=== PATIENT | female | born 1975 | race Caucasian/White ===

== ENCOUNTER 2017-05-30 11:31 | Inpatient (IN) | payer OTHER ==
[~2017-05-30] VITALS: Ht 165.1 cm; Wt 77.1 kg
[~2017-05-30 11:31] MED LIST: ATARAX25 MG PO; CIPRO500 MG PO; CLARITIN10 MG PO; CLEOCIN HCL300 MG PO; FLAGYL500MG PO; HYOSCYAMINE0.125 M1 SL; INTESTINEX1 CA1 PO; LOTRISONE CREAM45 GM TOP; MEDROL4 MG PO; NAPR500T14 PO; PROTONIX40 MG PO; SEPTRA DS TABLE1 TAB PO; SURFAK240 MG NGT; SYNTHROID100 MCG; SYNTHROID100 MCG PO; Synthroid 100MCG TABLET PO; ZYRTEC10 MG PO
[2017-06-05] MEDS ORDERED: CIPRO500 MG PO (13:43)
[2017-06-05] MEDS ORDERED: FAMOTIDINE20 MG PO (13:43)
[2017-06-05] MEDS ORDERED: SYNTHROID100 MCG PO (13:43)
[2017-06-05] MEDS ORDERED: MONTELUKAST SOD10 MG PO (13:43)
[2017-06-05] MEDS ORDERED: FLAGYL500MG PO (13:43)
[2017-06-05] MEDS ORDERED: Intestinex CAP PO (13:43)
[2017-06-05] MEDS ORDERED: MEDROLPACK PO (13:43)
[2017-06-05] MEDS ORDERED: BENZONATATE100 MG PO (13:43)
[2017-06-05] MEDS ORDERED: IPRATROPIU0.2 MG/1 M IH (13:43)
[2017-06-05] MEDS ORDERED: Pulmicort 0.5 MG/2 M IH (13:43)
[2017-06-05] MEDS ORDERED: HYDROCODONE-CH115 ML PO (13:43)
== END 2017-06-05 15:56 | disposition home or self-care (01) | DRG 392 ==
LOC: ER 11:31 → SURH 18:45 → MEDJ 18:45 → SURH 22:15
PROC: 3E0F7GC Introduction of Other Therapeutic Substance into Respiratory Tract, Via Natural or Artificial Opening (ICD-10-PCS; principal; 2017-05-30)
PROC: BW21Y0Z Computerized Tomography (CT Scan) of Abdomen and Pelvis using Other Contrast, Unenhanced and Enhanced (ICD-10-PCS; 2017-05-30)
DX: K57.32 Diverticulitis of large intestine without perforation or abscess without bleeding (principal); J45.22 Mild intermittent asthma with status asthmaticus; E03.8 Other specified hypothyroidism

== ENCOUNTER → 2017-06-12 | Outpatient (CLI) | payer OTHER ==
[~2017-06-12] MED LIST changes: +BENZONATATE100 MG PO; +FAMOTIDINE20 MG PO; +HYDROCODONE-CH115 ML PO; +IPRATROPIU0.2 MG/1 M IH; +Intestinex CAP PO; +MEDROLPACK PO; +MONTELUKAST SOD10 MG PO; +Pulmicort 0.5 MG/2 M IH
== END | disposition home or self-care (01) ==
LOC: PPHC 11:28
DX: Z00.8 Encounter for other general examination (principal)

== ENCOUNTER → 2017-10-22 12:15 | Outpatient (CLI) | payer OTHER | END | disposition home or self-care (01) | LOC: LAB 12:15 | DX: Z00.00 Encounter for general adult medical examination without abnormal findings (principal); I10 Essential (primary) hypertension; E03.8 Other specified hypothyroidism; E78.00 Pure hypercholesterolemia, unspecified; N91.0 Primary amenorrhea; E55.9 Vitamin D deficiency, unspecified; R82.79 Other abnormal findings on microbiological examination of urine; R79.9 Abnormal finding of blood chemistry, unspecified; R79.89 Other specified abnormal findings of blood chemistry ==

== ENCOUNTER 2017-10-22 12:21 | Outpatient (CLI) | payer OTHER | END 2017-10-22 12:31 | disposition home or self-care (01) | LOC: MAMO-SONO 12:21 | DX: N64.59 Other signs and symptoms in breast (principal); N64.89 Other specified disorders of breast; Z12.31 Encounter for screening mammogram for malignant neoplasm of breast; N94.0 Mittelschmerz; N94.89 Other specified conditions associated with female genital organs and menstrual cycle; R10.2 Pelvic and perineal pain ==

== ENCOUNTER → 2018-02-09 12:25 | Outpatient (CLI) | payer OTHER | END | disposition home or self-care (01) | LOC: LAB 12:25 | DX: E03.8 Other specified hypothyroidism (principal); Z13.1 Encounter for screening for diabetes mellitus; R03.0 Elevated blood-pressure reading, without diagnosis of hypertension; Z12.11 Encounter for screening for malignant neoplasm of colon ==

== ENCOUNTER 2018-02-19 15:15 | Outpatient (CLI) | payer OTHER | END 2018-02-19 16:06 | disposition home or self-care (01) | LOC: NUCLEAR 15:15 | DX: I87.2 Venous insufficiency (chronic) (peripheral) (principal) ==

== ENCOUNTER 2018-05-25 14:38 | Outpatient (CLI) | payer OTHER | END 2018-05-25 15:19 | disposition home or self-care (01) | LOC: LAB 14:38 | DX: Z11.59 Encounter for screening for other viral diseases (principal); Z11.3 Encounter for screening for infections with a predominantly sexual mode of transmission ==

== ENCOUNTER 2018-06-24 09:14 | Outpatient (CLI) | payer OTHER | END 2018-06-24 09:20 | disposition home or self-care (01) | LOC: LAB 09:14 | DX: M32.8 Other forms of systemic lupus erythematosus (principal); M06.89 Other specified rheumatoid arthritis, multiple sites; E03.8 Other specified hypothyroidism ==

== ENCOUNTER 2018-07-07 10:58 | Outpatient (CLI) | payer OTHER | END 2018-07-07 11:05 | disposition home or self-care (01) | LOC: RAD 10:58 | DX: M25.572 Pain in left ankle and joints of left foot (principal) ==

== ENCOUNTER → 2019-02-09 | Emergency (ER) | payer OTHER ==
[~2019-02-09] VITALS: Ht 165.1 cm; Wt 73.5 kg
[~2019-02-09] MED LIST changes: +ZANTAC150 MG PO
== END | disposition home or self-care (01) ==
LOC: ER 06:59
DX: L50.8 Other urticaria (principal)

== ENCOUNTER 2019-06-09 11:06 | Outpatient (CLI) | payer OTHER | END 2019-06-09 11:10 | disposition home or self-care (01) | LOC: SONOGRAMA 11:06 | DX: R10.2 Pelvic and perineal pain (principal) ==

== ENCOUNTER 2019-09-01 09:56 | Inpatient (IN) | payer OTHER ==
[~2019-09-01] VITALS: Ht 165.1 cm; Wt 74.4 kg
[2019-09-07] MEDS ORDERED: INTESTINEX680 M1 PO (11:59)
[2019-09-07] MEDS ORDERED: FLAGYL500MG PO (11:59)
[2019-09-07] MEDS ORDERED: SYNTHROID100 MCG PO (11:59)
[2019-09-07] MEDS ORDERED: CARAFATE1 GM PO (11:59)
[2019-09-07] MEDS ORDERED: PROTONIX40 MG PO (11:59)
[2019-09-07] MEDS ORDERED: CIPRO500 MG PO (11:59)
== END 2019-09-07 15:39 | disposition home or self-care (01) | DRG 392 ==
LOC: ER 09:56 → SURH 17:04
PROVIDERS: ADMIT Internal Medicine Geriatric Medicine; ATTEND Internal Medicine Geriatric Medicine
PROC: BW21Y0Z Computerized Tomography (CT Scan) of Abdomen and Pelvis using Other Contrast, Unenhanced and Enhanced (ICD-10-PCS; principal; 2019-09-01)
PROC: 02HV33Z Insertion of Infusion Device into Superior Vena Cava, Percutaneous Approach (ICD-10-PCS; 2019-09-02)
PROC: 3E0436Z Introduction of Nutritional Substance into Central Vein, Percutaneous Approach (ICD-10-PCS; 2019-09-02)
DX: K57.32 Diverticulitis of large intestine without perforation or abscess without bleeding (principal); R10.32 Left lower quadrant pain; E03.8 Other specified hypothyroidism; Z03.818 Encounter for observation for suspected exposure to other biological agents ruled out

== ENCOUNTER 2019-09-20 14:31 | Outpatient (CLI) | payer OTHER ==
[~2019-09-20 14:31] MED LIST changes: +CARAFATE1 GM PO; +INTESTINEX680 M1 PO
== END 2019-09-20 14:41 | disposition home or self-care (01) ==
LOC: MRI 14:31
DX: M76.52 Patellar tendinitis, left knee (principal)
CPT/HCPCS: 73721

== ENCOUNTER 2020-02-27 10:21 | Emergency (ER) | payer OTHER ==
[~2020-02-27] VITALS: Ht 165.1 cm; Wt 74.8 kg
[2020-02-27] MEDS ORDERED: CIPRO500 MG PO (18:41)
[2020-02-27] MEDS ORDERED: INTESTINEX680 M1 PO (18:41)
[2020-02-27] MEDS ORDERED: PEPCID AC20 MG PO (18:41)
[2020-02-27] MEDS ORDERED: FLAGYL500MG PO (18:41)
== END 2020-02-27 19:33 | disposition home or self-care (01) ==
LOC: ER 10:21
DX: K52.89 Other specified noninfective gastroenteritis and colitis (principal); K57.30 Diverticulosis of large intestine without perforation or abscess without bleeding; R10.32 Left lower quadrant pain; Z03.818 Encounter for observation for suspected exposure to other biological agents ruled out

== ENCOUNTER 2020-03-22 08:29 | Outpatient (CLI) | payer OTHER ==
[~2020-03-22 08:29] MED LIST changes: +PEPCID AC20 MG PO
== END 2020-03-22 18:00 | disposition home or self-care (01) ==
LOC: PPH VACUNA 08:29
DX: Z23 Encounter for immunization (principal)

== ENCOUNTER 2021-04-08 08:00 | Outpatient (CLI) | payer OTHER | END 2021-04-08 08:30 | disposition home or self-care (01) | LOC: PPH VACUNA 08:00 | PROVIDERS: ATTEND Emergency Medicine Pediatric Emergency Medicine | DX: Z23 Encounter for immunization (principal) ==

== ENCOUNTER 2021-04-09 10:51 | Outpatient (CLI) | payer OTHER | END 2021-04-09 10:54 | disposition home or self-care (01) | LOC: SONOGRAMA 10:51 | PROVIDERS: ATTEND Orthopaedic Surgery | DX: M77.12 Lateral epicondylitis, left elbow (principal); M25.522 Pain in left elbow ==

== ENCOUNTER 2021-08-22 13:33 | Outpatient (CLI) | payer OTHER | END 2021-08-22 13:45 | disposition home or self-care (01) | LOC: MAMO-SONO 13:33 | PROVIDERS: ATTEND Obstetrics & Gynecology | DX: N60.09 Solitary cyst of unspecified breast (principal) ==

== ENCOUNTER 2021-11-25 01:34 | Emergency (ER) | payer OTHER | END 2021-11-25 11:45 | disposition home or self-care (01) | LOC: ER 01:34 | DX: R10.12 Left upper quadrant pain (principal); K57.92 Diverticulitis of intestine, part unspecified, without perforation or abscess without bleeding; E03.9 Hypothyroidism, unspecified; Z20.822 Contact with and (suspected) exposure to COVID-19 ==

== ENCOUNTER 2022-04-15 06:43 | Emergency (ER) | payer OTHER ==
[~2022-04-15] VITALS: Ht 165.1 cm; Wt 72.6 kg
[~2022-04-15 06:43] MED LIST changes: +CYCLOBENZAPRINE10 MG PO; +KETO10TA2 PO; +ORPHENADRINE C100 MG PO; +PERCOCET 5-3251 EACH PO
== END 2022-04-15 12:17 | disposition home or self-care (01) ==
LOC: ER 06:43
DX: J40 Bronchitis, not specified as acute or chronic (principal); B34.9 Viral infection, unspecified; Z20.822 Contact with and (suspected) exposure to COVID-19

== ENCOUNTER 2022-04-17 12:22 | Emergency (ER) | payer OTHER ==
[~2022-04-17] VITALS: Ht 165.1 cm; Wt 72.6 kg
[2022-04-17] MEDS ORDERED: TUSICOF LIQUID120 ML PO (15:37)
[2022-04-17] MEDS ORDERED: BUDESONIDE0.5 MG/2 M BC (15:37)
[2022-04-17] MEDS ORDERED: ZITHROMAX TRI-500 MG PO (15:37)
[2022-04-17] MEDS ORDERED: MEDROLPACK PO (15:37)
== END 2022-04-17 17:46 | disposition home or self-care (01) ==
LOC: ER 12:22
DX: J45.902 Unspecified asthma with status asthmaticus (principal); J45.22 Mild intermittent asthma with status asthmaticus; J45.32 Mild persistent asthma with status asthmaticus; J45.52 Severe persistent asthma with status asthmaticus; Z20.822 Contact with and (suspected) exposure to COVID-19

== ENCOUNTER 2022-05-15 | Outpatient (CLI) | payer OTHER ==
[~2022-05-15] MED LIST changes: +BUDESONIDE0.5 MG/2 M BC; +TUSICOF LIQUID120 ML PO; +ZITHROMAX TRI-500 MG PO
== END 2022-05-15 00:15 | disposition home or self-care (01) ==
LOC: PPH VACUNA
PROVIDERS: ATTEND Emergency Medicine Pediatric Emergency Medicine
DX: Z23 Encounter for immunization (principal)

== ENCOUNTER 2022-05-22 07:37 | Outpatient (CLI) | payer OTHER | END 2022-05-22 07:56 | disposition home or self-care (01) | LOC: LAB 07:37 | PROVIDERS: ATTEND General Practice | DX: Z00.00 Encounter for general adult medical examination without abnormal findings (principal); E78.5 Hyperlipidemia, unspecified; E55.9 Vitamin D deficiency, unspecified; N39.0 Urinary tract infection, site not specified; R10.9 Unspecified abdominal pain; E03.9 Hypothyroidism, unspecified ==

== ENCOUNTER 2024-05-10 10:40 | Outpatient (CLI) | payer OTHER ==
[~2024-05-10 10:40] MED LIST changes: +AMOX1TAB5 PO; +LEVOTHYROXINE25 MCG PO; +OSEL75CA PO
== END 2024-05-10 10:48 | disposition home or self-care (01) ==
LOC: MAMO-SONO 10:40
PROVIDERS: ATTEND Obstetrics & Gynecology
DX: N64.9 Disorder of breast, unspecified (principal); N64.4 Mastodynia; Z12.31 Encounter for screening mammogram for malignant neoplasm of breast; N94.89 Other specified conditions associated with female genital organs and menstrual cycle

== ENCOUNTER 2024-08-28 20:43 | Inpatient (IN) | payer OTHER ==
[~2024-08-28] VITALS: Ht 165.1 cm; Wt 73.9 kg
[2024-08-28] MEDS ORDERED: METRONIDAZOLE/SODIUM CHLORIDE 500 MG/100 ML PIGGYBACK IV ONE (21:06)
[2024-08-28] MEDS ORDERED: 0.9 % SODIUM CHLORIDE 1,000 ML IV STA (21:06)
[2024-08-28] MEDS ORDERED: METRONIDAZOLE/SODIUM CHLORIDE 500 MG/100 ML PIGGYBACK IV SCH (21:07)
[2024-08-28] MEDS ORDERED: BARIUM SULFATE 450 ML ORAL.SUSP PO ONE (21:14)
[2024-08-28] MEDS ORDERED: CIPROFLOXACIN IN 5 % DEXTROSE 400 MG/200 ML PIGGYBAG IV ONE (21:15)
[2024-08-28] MEDS ORDERED: MORPHINE SULFATE 4 MG/ML VIAL IV ONE (21:15)
[2024-08-28 21:18] LABS: BASO % 0.3 % (0.1-1.2); EOS # 0.17 (0.04-0.54); EOS % 2.5 % (0.7-7.0); HEMATOCRIT 36.4 % (34.1-44.9); HEMOGLOBIN 12.6 g/dL (11.2-15.7); LYMPH # 2.14 (1.18-3.74); LYMPH % 31.8 % (19.3-53.1); MEAN CORPUSCULAR HEMOGLOBIN 29.9 pg (25.6-32.2); MONO # 1.12 (0.24-0.82); NEUT # 3.28 (1.56-6.13); NEUT % 48.7 % (34.0-71.1); PLATELET COUNT 196 K/uL (163-369); RED BLOOD COUNT 4.22 M/uL (3.93-5.22); RED CELL DISTRIBUTION WIDTH 12.2 % (11.6-14.4)
[2024-08-28 21:19] LABS: MONO % 16.6 % (4.7-12.5)
[2024-08-28 21:50] LABS: CREATININE SERUM 0.73 mg/dL (0.55-1.02); GFR 84.39; POTASSIUM 3.88 mEq/L (3.5-5.1)
[2024-08-28 22:21] LABS: PH,URINE 6.5 (5.0-8.0); URINE APPEARANCE Clear; URINE BILIRRUBIN Negative (NEGATIVE); URINE BLOOD Negative; URINE COLOR Yellow; URINE GLUCOSE Negative (NEGATIVE); URINE KETONE Negative (NEGATIVE); URINE LEUKOCYTE Small; URINE NITRATE Negative; URINE PROTEIN Negative (NEGATIVE); URINE UROBILINOGEN 0.2 E.U./dl
[2024-08-28 22:25] LABS: URINE BACTERIA 462.5 uL (0.0-1933); URINE EPITHELIAL CELLS 9.8 uL (0.0-38.8); URINE RBC 9.1 uL (0.0-20.8); URINE WBC 22.1 uL (0.0-23.2)
[2024-08-29] MEDS ORDERED: MORPHINE SULFATE 4 MG/ML VIAL IV STA (05:00)
[2024-08-29] MEDS ORDERED: CIPROFLOXACIN IN 5 % DEXTROSE 400 MG/200 ML PIGGYBAG IV ONE (08:11)
[2024-08-29] MEDS ORDERED: METRONIDAZOLE/SODIUM CHLORIDE 500 MG/100 ML PIGGYBACK IV ONE (08:11)
[2024-08-29] MEDS ORDERED: 0.9 % SODIUM CHLORIDE 1,000 ML IV ONE (08:15)
[2024-08-29] MEDS ORDERED: CIPROFLOXACIN IN 5 % DEXTROSE 200 ML IV SCH (09:00)
[2024-08-29] MEDS ORDERED: METRONIDAZOLE/SODIUM CHLORIDE 100 ML IV SCH (09:00)
[2024-08-29] MEDS ORDERED: DEXTROSE 5 % AND 0.9 % NACL 1,000 ML IV SCH ×2 (10:45→11:00)
[2024-08-29] MEDS ORDERED: FAMOTIDINE/PF 20 MG/2 ML VIAL IV SCH (10:47)
[2024-08-29] MEDS ORDERED: ENOXAPARIN SODIUM 40 MG/0.4 ML SYRINGE SUBCUTANEO SCH (10:50)
[2024-08-29] MEDS ORDERED: ONDANSETRON HCL 2 MG/ML VIAL IV PRN (11:00)
[2024-08-29] MEDS ORDERED: ENOXAPARIN SODIUM 40 MG/0.4 ML SYRINGE SUBCUTANEO ONE (12:24)
[2024-08-29] MEDS ORDERED: FAMOTIDINE/PF 20 MG/2 ML VIAL ONE (12:24)
[2024-08-29 14:17] LABS: COVID-19 AG NEGATIVE (NEGATIVE)
[2024-08-29 16:36] VITALS: BP 106/66; O2SAT 99
[2024-08-30 00:49] VITALS: BP 88/50
[2024-08-30] MEDS ORDERED: LEVOTHYROXINE SODIUM 100 MCG TABLET PO SCH (06:00)
[2024-08-30 08:33] LABS: BASO % 0.6 % (0.1-1.2); EOS # 0.12 (0.04-0.54); EOS % 3.4 % (0.7-7.0); HEMATOCRIT 30.5 % (34.1-44.9); HEMOGLOBIN 10.6 g/dL (11.2-15.7); LYMPH # 1.34 (1.18-3.74); LYMPH % 38.1 % (19.3-53.1); MEAN CORPUSCULAR HEMOGLOBIN 30.9 pg (25.6-32.2); NEUT # 1.54 (1.56-6.13); NEUT % 43.7 % (34.0-71.1); PLATELET COUNT 154 K/uL (163-369); RED BLOOD COUNT 3.43 M/uL (3.93-5.22); RED CELL DISTRIBUTION WIDTH 12.3 % (11.6-14.4)
[2024-08-30 08:39] LABS: MONO % 14.2 % (4.7-12.5)
[2024-08-30 08:54] LABS: ERYTHROCYTE SEDIMENTATION RATE 10 mm/hr (0-20)
[2024-08-30 09:08] VITALS: BP 106/61; O2SAT 98
[2024-08-30 10:18] LABS: PHOSPHOROUS 4.7 mg/dL (2.5-4.9)
[2024-08-30 10:26] LABS: C-REACTIVE PROTEIN 0.65 MG/DL (0.00-0.29); HCG QUANTITATIVE < 1 mUI/mL (1-3)
[2024-08-30 18:20] VITALS: BP 101/61; O2SAT 98
[2024-08-31 01:54] VITALS: BP 109/65; O2SAT 95
[2024-08-31 08:35] VITALS: BP 95/55; O2SAT 97
[2024-08-31 17:41] VITALS: BP 108/79; O2SAT 97
[2024-09-01 02:02] VITALS: BP 101/61; O2SAT 95
[2024-09-01 06:47] LABS: CALCIUM 8.9 mg/dL (8.5-10.1); CREATININE SERUM 0.8 mg/dL (0.55-1.02); GFR 75.92; MAGNESIUM 1.9 mg/dL (1.8-2.4); PHOSPHOROUS 3.8 mg/dL (2.5-4.9); POTASSIUM 3.87 mEq/L (3.5-5.1)
[2024-09-01 06:56] LABS: BASO % 0.6 % (0.1-1.2); EOS # 0.11 (0.04-0.54); HEMATOCRIT 30.9 % (34.1-44.9); HEMOGLOBIN 10.4 g/dL (11.2-15.7); LYMPH % 49.7 % (19.3-53.1); MEAN CORPUSCULAR HEMOGLOBIN 29.9 pg (25.6-32.2); MONO # 0.48 (0.24-0.82); NEUT # 1.21 (1.56-6.13); NEUT % 33.4 % (34.0-71.1); PLATELET COUNT 160 K/uL (163-369); RED BLOOD COUNT 3.48 M/uL (3.93-5.22); RED CELL DISTRIBUTION WIDTH 12.2 % (11.6-14.4)
[2024-09-01 07:43] LABS: MONO % 13.3 % (4.7-12.5)
[2024-09-01 07:46] VITALS: BP 107/69; O2SAT 96
[2024-09-01 16:12] VITALS: BP 137/82; O2SAT 100
[2024-09-01] MEDS ORDERED: PEG3350/SOD SULF,BICARB,CL/KCL 4,000 ML GALLON PO NR (19:00)
[2024-09-02 02:07] VITALS: BP 100/67; O2SAT 100
[2024-09-02] MEDS ORDERED: NA PHOS,M-B/NA PHOS,DI-BA 1 BOTTLE ENEMA RECTAL NR (06:00)
[2024-09-02 08:24] VITALS: BP 110/72; O2SAT 97
[2024-09-02] MEDS ORDERED: fentaNYL CITRATE 50 MCG/ML AMPUL IV ONE (11:30)
[2024-09-02] MEDS ORDERED: MIDAZOLAM HCL 2 MG/2 ML VIAL IV ONE (11:30)
[2024-09-02] MEDS ORDERED: DIPHENHYDRAMINE HCL 50 MG/ML VIAL 1ML IV NR (11:30)
[2024-09-02] MEDS ORDERED: SYNTHROID100 MCG PO (13:40)
[2024-09-02] MEDS ORDERED: PEPCID AC20 MG PO (13:40)
[2024-09-02] MEDS ORDERED: CIPRO500 MG PO (13:40)
[2024-09-02] MEDS ORDERED: METRONIDAZOLE500 MG PO (13:40)
== END 2024-09-02 14:36 | disposition home or self-care (01) | DRG 348 ==
LOC: ER 20:50 → MEDJ 08-29 13:51
PROVIDERS: Emergency Medicine; ADMIT Internal Medicine Geriatric Medicine; ATTEND Internal Medicine Geriatric Medicine
PROC: BW21ZZZ Computerized Tomography (CT Scan) of Abdomen and Pelvis (ICD-10-PCS; 2024-08-28)
PROC: 0DBB8ZZ Excision of Ileum, Via Natural or Artificial Opening Endoscopic (ICD-10-PCS; principal; 2024-09-02)
PROC: 0DBM8ZZ Excision of Descending Colon, Via Natural or Artificial Opening Endoscopic (ICD-10-PCS; 2024-09-02)
PROC: 0DBL8ZX Excision of Transverse Colon, Via Natural or Artificial Opening Endoscopic, Diagnostic (ICD-10-PCS; 2024-09-02)
DX: K52.9 Noninfective gastroenteritis and colitis, unspecified (principal); E87.0 Hyperosmolality and hypernatremia; K57.30 Diverticulosis of large intestine without perforation or abscess without bleeding; E03.9 Hypothyroidism, unspecified; D12.3 Benign neoplasm of transverse colon